=== PATIENT | female | born 2000 ===

== ENCOUNTER 2022-04-13 11:35 | Outpatient (CLI) | payer OTHER | END 2022-04-13 12:46 | disposition home or self-care (01) | LOC: PRENATAL 11:35 | PROVIDERS: ATTEND Obstetrics & Gynecology Maternal & Fetal Medicine | DX: O36.80X0 Pregnancy with inconclusive fetal viability, not applicable or unspecified (principal); Z36 Encounter for antenatal screening of mother; Z3A.13 13 weeks gestation of pregnancy ==

== ENCOUNTER 2022-05-31 16:16 | Outpatient (CLI) | payer OTHER | END 2022-05-31 17:25 | disposition home or self-care (01) | LOC: PRENATAL 16:16 | PROVIDERS: ATTEND Obstetrics & Gynecology Maternal & Fetal Medicine | DX: O35.9XX0 Maternal care for (suspected) fetal abnormality and damage, unspecified, not applicable or unspecified (principal); O35.3XX0 Maternal care for (suspected) damage to fetus from viral disease in mother, not applicable or unspecified; Z3A.20 20 weeks gestation of pregnancy ==

== ENCOUNTER 2022-08-24 14:54 | Outpatient (CLI) | payer OTHER | END 2022-08-24 15:30 | disposition home or self-care (01) | LOC: PRENATAL 14:54 | PROVIDERS: ATTEND Obstetrics & Gynecology Maternal & Fetal Medicine | DX: O26.849 Uterine size-date discrepancy, unspecified trimester (principal); O36.8199 Decreased fetal movements, unspecified trimester, other fetus; Z3A.32 32 weeks gestation of pregnancy ==